=== PATIENT | male | born 1965 | race African-American/Black ===

== ENCOUNTER 2023-06-21 08:37 | Emergency (ER) | payer MEDICAID, OTHER ==
[~2023-06-21] VITALS: Ht 175.3 cm; Wt 127.0 kg
[2023-06-21 08:42] VITALS: TEMP 98.5; O2SAT 99
[2023-06-21 08:45] VITALS: BP 132/84; PULSE 90; RESP 16
[2023-06-21] MEDS ORDERED: IBUPROFEN 600MG TABLET PO ONE (08:45)
[2023-06-21] MEDS ORDERED: MELO-105 MT (09:46)
== END 2023-06-21 11:14 | disposition home or self-care (01) ==
LOC: ER 08:37
DX: M19.90 Unspecified osteoarthritis, unspecified site (principal); I10 Essential (primary) hypertension; Z90.49 Acquired absence of other specified parts of digestive tract
CPT/HCPCS: 73560; 99283